=== PATIENT | male | born 1980 | race Caucasian/White ===

== ENCOUNTER 2021-02-26 18:18 | Emergency (ER) | payer OTHER ==
[2021-02-26] MEDS ORDERED: Lidocaine 1% PF 5 ML VIAL ONE (18:26)
[2021-02-26] MEDS ORDERED: Bacitracin 1 PK ONE (18:27)
[2021-02-26] MEDS ORDERED: CEFAZOLIN 1 GM VIAL ONE (18:35)
[2021-02-26] MEDS ORDERED: Sterile Water 10 ML ONE (18:35)
== END 2021-02-26 19:13 | disposition home or self-care (01) ==
LOC: BURERS 18:18
DX: S61.212A Laceration without foreign body of right middle finger without damage to nail, initial encounter (principal); X50.0XXA Overexertion from strenuous movement or load, initial encounter
CPT/HCPCS: 12001; 96372; J0690